=== PATIENT | female | born 1950 | race Two or more races ===

== ENCOUNTER 2016-12-31 14:37 | Emergency (ER) | payer MEDICARE, MEDICAID ==
[~2016-12-31] VITALS: Ht 154.9 cm; Wt 49.9 kg
[2016-12-31 14:46] VITALS: BP 132/73
[2016-12-31] MEDS ORDERED: LIDOCAINE 1% HCL (LOCAL ANESTH.) INJ 20ML MDV IN ONE (17:15)
[2016-12-31] MEDS ORDERED: cefTRIAXone SOD 1,000 MG VL IM ONE (17:45)
== END 2016-12-31 18:14 | disposition home or self-care (01) ==
LOC: ER 14:37
DX: L02.415 Cutaneous abscess of right lower limb (principal); J44.9 Chronic obstructive pulmonary disease, unspecified; M06.9 Rheumatoid arthritis, unspecified; M32.9 Systemic lupus erythematosus, unspecified; M79.7 Fibromyalgia
CPT/HCPCS: 10060; 96372; 99283; J0696; J2001

== ENCOUNTER 2019-03-14 03:48 | Inpatient (IN) | payer MEDICAID, MEDICARE, OTHER ==
[~2019-03-14] VITALS: Ht 154.9 cm; Wt 55.0 kg
[2019-03-14 04:18] LABS: Basophils # (auto) 0 uL; Basophils % (auto) 0.2 % (0.0-2.0); Eosinophils # (auto) 0 uL; Eosinophils % (auto) 0.1 % (0.0-7.0); Hematocrit 42.5 % (36.0-46.0); Hemoglobin 13.9 g/dL (12.2-16.2); Lymphocytes # (auto) 1.9 uL; Lymphocytes % (auto) 9.7 % (10.0-50.0); Mean Corpuscular Hemoglobin 27.1 pg (28.0-32.0); Mean Corpuscular Hgb Conc. 32.8 g/dL (32.0-36.0); Mean Corpuscular Volume 82.7 fL (80.0-100.0); Monocytes # (auto) 1.5 uL; Monocytes % (auto) 7.5 % (0.0-12.0); Neutrophils # (auto) 16.2 uL; Neutrophils % (auto) 82.5 % (37.0-80.0); Platelet Count (auto) 369 10^3/uL (140-450); Red Blood Cells 5.14 10^6/uL (4.0-5.20); Red Cell Distribution Width 14.5 % (11.8-14.3); White Blood Cell 19.6 10^3/uL (4.4-10.8)
[2019-03-14 04:34] LABS: INR 1.01 (0.9-1.15); Partial Thromboplastin Time 23.1 sec (23.64-32.05)
[2019-03-14 04:36] LABS: Albumin 2.7 g/dL (3.4-5.0); Anion Gap 9 (5-15); BUN/Creatinine Ratio 22.8; Blood Urea Nitrogen 18 mg/dL (7-18); Calcium 8.6 mg/dL (8.5-10.1); Carbon Dioxide 25 mmol/L (21-32); Chloride 99 mmol/L (98-107); GFR African American 93 mL/min; GFR Non-African American 77 mL/min; Glucose 124 mg/dL (74-106); Potassium 4.4 mmol/L (3.5-5.1); Sodium 133 mmol/L (136-145)
[2019-03-14 04:39] LABS: Alanine Aminotransferase 33 U/L (13-56); Alkaline Phosphatase 130 U/L (45-117); Aspartate Aminotransferase 16 U/L (15-37); Bilirubin, Total 0.4 mg/dL (0.2-1.0); Total Protein 8.4 g/dL (6.4-8.2)
[2019-03-14] MEDS ORDERED: KETOROLAC TROMETH 30 MG/ML 1ML VIAL IV ONE (04:45)
[2019-03-14] MEDS ORDERED: IOHEXOL 350 MG/ML 100ML IJ ONE (04:51)
[2019-03-14] MEDS ORDERED: MORPHINE SULF INJ 2 MG/ML SYRINGE 1ML IV ONE (05:15)
[2019-03-14] MEDS ORDERED: PIPERACILLIN-TAZOB 3.375GM 100 ML IV ONE (06:00)
[2019-03-14] MEDS ORDERED: VANCOMYCIN 1GM/250ML 250 ML IV ONE ×2 (06:00→23:30)
[2019-03-14] MEDS ORDERED: ONDANSETRON HCL 4 MG/2 ML VIAL IV PRN (06:45)
[2019-03-14] MEDS ORDERED: ACETAMINOPHEN 500 MG TAB PO PRN (06:45)
[2019-03-14 07:19] VITALS: BP 128/68
[2019-03-14] MEDS ORDERED: SODIUM CHLORIDE 0.9% 1,000 ML IV ONE (07:45)
[2019-03-14] MEDS: DOXYCYCLINE 100MG/250ML 250 ML IV SCH ×2 (08:49→20:59)
--- NOTE | 2019-03-14 08:53 | NUR ---
RECEIVED REPORT FROM KADY PINEDA
--- NOTE | 2019-03-14 09:05 | NUR ---
Telemetry admit from [facility] admitted to Telemetry unit after SBAR received. Patient oriented to Christina Dillard, primary RN, unit, room, bed, and unit policies regarding patient care and visiting hours. Patient now on continuous telemetry monitoring, tele box # 20 and telemetry reading on arrival to unit is SINUS THYTHM AT 85BPM. Patient placed on bedside oxygen, weighed by bedscale and encouraged to call if they need something. All questions and concerns addressed, patient verbalized understanding. Note: PT IS AWAKE AND ALERT, NO SIGNS OF DISTRESS AT THIS TIME WILL CONTINUE TO MONITOR.
[2019-03-14 09:15] VITALS: BP 122/63
[2019-03-14] MEDS: ALBUTEROL SULF 2.5 MG/0.5ML(0.5%) NEB SOLN NEB SCH ×4 (09:41→22:20)
[2019-03-14] MEDS: IPRATROPIUM BROM 0.5 MG/2.5ML INH SOL NEB SCH ×4 (09:41→22:20)
[2019-03-14] MEDS: PANTOPRAZOLE 40 MG TAB PO SCH (10:04)
[2019-03-14 11:09] LABS: Urine Bacteria NONE SEEN /hpf (None Seen); Urine Blood Negative /uL (Negative); Urine Mucus FEW (None Seen); Urine WBC 3 /hpf (0 - 5)
[2019-03-14 11:10] LABS: Urine Specific Gravity > 1.050 (1.001-1.035)
[2019-03-14 12:31] VITALS: BP 124/63
[2019-03-14] MEDS: SODIUM CHLORIDE 0.9% 1,000 ML IV SCH ×2 (12:57→23:22)
--- NOTE | 2019-03-14 13:10 | NUR ---
pt asleep on bed resting comfortably, no signs of SOB at this time will continue to monitor.
[2019-03-14 14:02] VITALS: BP 160/93
[2019-03-14] MEDS ORDERED: LEVO750T64 PO (14:47)
[2019-03-14] MEDS ORDERED: PRE5T PO (14:47)
[2019-03-14 16:33] VITALS: BP 127/66
--- NOTE | 2019-03-14 19:15 | NUR ---
Opening Shift Note Assumed care of patient, awake and alert. No S/S of distress/SOB or pain. Instructed on POC and to call for assist PRN, will continue to monitor for changes Q1hr and PRN. Side rails up x2. Bed locked in lowest position. Call light within reach.
[2019-03-14 22:00] VITALS: BP 136/60
[2019-03-14] MEDS ORDERED: VANCOMYCIN PER PHARMACY 0 MG IV SCH (23:15)
[2019-03-15] MEDS ORDERED: ERTAPENEM SOD INJ 0.5 GM in SODIUM CHL 0.9% 50 ML IV ONE ×2
--- NOTE | 2019-03-15 01:30 | NUR ---
Invanz Medication not available. Notified charge nurse. Will call pharmacy in the morning for this one time dose.
[2019-03-15] MEDS: IPRATROPIUM BROM 0.5 MG/2.5ML INH SOL NEB SCH ×6 (02:08→22:00)
[2019-03-15] MEDS: ALBUTEROL SULF 2.5 MG/0.5ML(0.5%) NEB SOLN NEB SCH ×6 (02:08→22:00)
--- NOTE | 2019-03-15 02:50 | NUR ---
Rounds Patient in bed awake with no signs of distress/sob/pain. Will continue to monitor.
[2019-03-15] MEDS: HYDROcodone-ACET 5/325MG TAB PO PRN ×3 (04:17→23:38)
[2019-03-15 05:00] VITALS: BP 141/63
--- NOTE | 2019-03-15 05:00 | NUR ---
Shortness of breath Patient verbalized pain on right side of chest upon inhalation. Patient verbalized "I am having a hard time breathing because it is painful when i breath" O2 saturation at 86% on 4L nasal cannula. Will administer PRN pain medication. Elevated head of the bed and placed patient on 6L oxymyzer. Patient states "I feel better" O2 saturation is now at 92% on 6L oxymyzer. Will continue to monitor.
[2019-03-15 06:24] LABS: Basophils # (auto) 0 uL; Basophils % (auto) 0.2 % (0.0-2.0); Eosinophils # (auto) 0.1 uL; Eosinophils % (auto) 0.7 % (0.0-7.0); Hematocrit 40.3 % (36.0-46.0); Hemoglobin 13.5 g/dL (12.2-16.2); Lymphocytes # (auto) 1.5 uL; Mean Corpuscular Hemoglobin 27.3 pg (28.0-32.0); Mean Corpuscular Hgb Conc. 33.5 g/dL (32.0-36.0); Mean Corpuscular Volume 81.4 fL (80.0-100.0); Monocytes # (auto) 1.1 uL; Monocytes % (auto) 8.3 % (0.0-12.0); Neutrophils % (auto) 78.8 % (37.0-80.0); Nucleated Red Blood Cells % 0.1 %; Platelet Count (auto) 425 10^3/uL (140-450); Red Blood Cells 4.95 10^6/uL (4.0-5.20); Red Cell Distribution Width 14.4 % (11.8-14.3); White Blood Cell 12.7 10^3/uL (4.4-10.8)
[2019-03-15 06:37] LABS: Calcium 8.2 mg/dL (8.5-10.1); Potassium 3.6 mmol/L (3.5-5.1)
[2019-03-15 06:41] LABS: BUN/Creatinine Ratio 12.5
--- NOTE | 2019-03-15 07:34 | NUR ---
Endorsed care to day shift RN.
[2019-03-15 08:00] VITALS: BP 120/57
[2019-03-15] MEDS: PANTOPRAZOLE 40 MG TAB PO SCH (09:42)
[2019-03-15] MEDS: VANCOMYCIN 500 MG in D5W 5% 100 ML IV SCH ×2 (10:59→23:37)
--- NOTE | 2019-03-15 11:07 | NUR ---
OXYGEN SATURATION ROOM AIR 95%, WILL CONTINUE TO MONITOR.
[2019-03-15] MEDS: SODIUM CHLORIDE 0.9% 1,000 ML IV SCH (11:25)
--- NOTE | 2019-03-15 11:30 | NUR ---
SPOKE WITH DR. Hazel TODD MADE AWARE PT'S O2 SATURATION WAS 95% ROOM AIR, HE SAID PT NEEDS MIDLINE FOR HOME ANTIBIOTIC FOR 2 WEEKS, AND PT CAN GO HOME IF CLEARED BY PULMONARY.
--- NOTE | 2019-03-15 11:35 | NUR ---
PICC LINE NURSE MADE AWARE PT HAS ORDER FOR MIDLINE FOR HOME ANTIBIOTIC FOR 2 WEEKS.
[2019-03-15] MEDS ORDERED: INVANZ IM (11:42)
[2019-03-15] MEDS ORDERED: VAN1PBAE IV (11:42)
[2019-03-15 12:00] VITALS: BP 116/51
--- NOTE | 2019-03-15 12:15 | NUR ---
PT SEEN BY DR. FLORES PER DR. FLORES PT IS CLEARED FOR DISCHARGE WITH HOME IV ANTIBIOTIC.
[2019-03-15 12:31] VITALS: BP 116/51
--- NOTE | 2019-03-15 13:41 | NUR ---
Midline Placement Patient educated on need for midline placement. All risks and benefits explained and all questions and concerns addresses prior to procedure. 18g/10cm midline inserted via right brachial vein using Ultrasound. Sterile technique utilized. Blood return obtained from single lumen and flushed easily with NS using proper technique. Midline secured with saline lock; biodisc and occlusive dressing applied. Primary RN notified. Midline lot #[id number].
[2019-03-15] MEDS: ERTAPENEM SOD INJ 1 GM in SODIUM CHL 0.9% 50 ML IV SCH (14:16)
--- NOTE | 2019-03-15 14:26 | NUR ---
SPOKE WITH AKANKSHA FLOWER MAKER REGARDING UPDATE FOR HOME IV ANTIBIOTIC, PER AKANKSHA SHE IS WORKING ON IT.
--- NOTE | 2019-03-15 14:44 | NUR ---
faxed order for abx to [facility]. Awaiting call back
--- NOTE | 2019-03-15 15:36 | NUR ---
assessment Patient is a 69 year old female who is alert and oriented. Prior to admission patient lived home with her daughter and functioned independently. Per patient she will return home with her daughter on discharge. Patient informed me she has a cane for home use. Patients PCP is Dr Nixon. Patient has no advanced directive or POA. Patient does not want one at this time. Patient has been notified of her consult for IV ABX for home. Patient informed me she and her daughter are teachable. Graciela renal case manager is working on IV infusion and home health. Addendum: 03/15/19 at 1544 by Francoise BATISTA Amended: Links added.
--- NOTE | 2019-03-15 15:42 | NUR ---
re-assessment Per consult please arrange for home 02 if patient qualifies. Patient has 02 sats of 95% on room air. Patient does not qualify for home 02. Addendum: 03/15/19 at 1544 by Francoise Alaniz Amended: Links added.
--- NOTE | 2019-03-15 16:24 | NUR ---
HOME ABX; [facility] has accepted pt but cannot go out to pt until tomorrow evening. Pt will have to stay tonoc and get am dose of vanco before leaving tomorrow. Contracted [facility] agencies are down RNs and are either not accepting pts or unable to start any sooner
--- NOTE | 2019-03-15 16:34 | NUR ---
[facility] Mary[facility] is working on order and knows pt is not discharged until tomorrow after dose of vanco
--- NOTE | 2019-03-15 16:38 | NUR ---
LEFT A MESSAGE TO DR. TODD THAT PT WILL STAY TONIGHT SINCE HOME HEALTH NURSE WILL NOT BE AVAILABLE UNTIL TOMORROW EVENING.
[2019-03-15 16:40] VITALS: BP 146/67
--- NOTE | 2019-03-15 18:25 | NUR ---
SPOKE TO RODNEY, MADE AWARE PT CANNOT GO HOME TONIGHT, HOME HEALTH NURSE WILL BE AVAILABLE TOMORROW EVENING.
[2019-03-15 22:06] VITALS: BP 135/61
[2019-03-16] MEDS: ALBUTEROL SULF 2.5 MG/0.5ML(0.5%) NEB SOLN NEB SCH ×4 (02:08→14:15)
[2019-03-16] MEDS: IPRATROPIUM BROM 0.5 MG/2.5ML INH SOL NEB SCH ×4 (02:08→14:15)
[2019-03-16] MEDS: SODIUM CHLORIDE 0.9% 1,000 ML IV SCH ×2 (02:22→13:38)
[2019-03-16 04:58] VITALS: BP 154/71
--- NOTE | 2019-03-16 08:10 | NUR ---
Patient awake, on breathing treatment.
--- NOTE | 2019-03-16 08:38 | NUR ---
Hazel Brooks came over. ordered to discharge the patient when the home IV antibiotics is set up, with home health.
[2019-03-16 09:40] VITALS: BP 128/69
[2019-03-16] MEDS: VANCOMYCIN 500 MG in D5W 5% 100 ML IV SCH (11:25)
[2019-03-16] MEDS: PANTOPRAZOLE 40 MG TAB PO SCH (11:25)
--- NOTE | 2019-03-16 12:12 | NUR ---
Paged Quality Control Specialist Graciela.
--- NOTE | 2019-03-16 12:27 | NUR ---
Called the office of Hazel Brooks Left a message if patient can get the second dose of Vanco around 8:00 pm or earlier because home health Nurse will be available to bring the home IV antibiotics at 11:00 pm yordan.
--- NOTE | 2019-03-16 12:41 | NUR ---
Granite Polisher Machine Graciela called back. Graciela said patient is assigned to Granite Polisher Machine Raina. Paged Raina.
--- NOTE | 2019-03-16 12:50 | NUR ---
Worship Director Raina called back if it's okay with Arya Brooks. if patient can get the second dose of Vancomycin at 9:00 pm at home yordan, home health nurse to come over to patient's home at 9:00 pm for IV antibiotics.
--- NOTE | 2019-03-16 12:55 | NUR ---
Called the office of Hazel Brooks Left a message if okay with him to let the patient get the second dose of Vancomycin as early as 9:00 pm at home tonight. Home health nurse to come over at patient's house at 9:00 pm tonight as per Director Custom Raina Lockett. Waiting for MD to call back.
[2019-03-16 13:06] VITALS: BP 142/72
--- NOTE | 2019-03-16 13:29 | NUR ---
Hazel Brooks called back. said it's okay that patient get's the second dose of Vancomycin drip at home as early as 9:00 pm yordan. Paged Chief Supply Chain Officer Raina.
[2019-03-16] MEDS: ERTAPENEM SOD INJ 1 GM in SODIUM CHL 0.9% 50 ML IV SCH (13:31)
[2019-03-16] MEDS: HYDROcodone-ACET 5/325MG TAB PO PRN (13:38)
--- NOTE | 2019-03-16 13:39 | NUR ---
Manager Field Investigations Raina called back, made aware Dr. Becker said it's okay if patient gets the second dose of Vancomycin as early as 9:00 pm at home tonight as per home health nurse. Will give the informations to patient: [facility] ([phone]) and [facility] ([phone]). Addendum: 03/16/19 at 1342 by Mary Anne Werner RN information
--- NOTE | 2019-03-16 14:02 | NUR ---
I called [facility] and left message for Christine letting her know that it is okay with to give carllilia's Vancomycin dose at 2100 instead of 2300-also faxed her message as well-awaiting return call. I provided nurse Mary Anne with contact information for both [facility] as well as [facility].
--- NOTE | 2019-03-16 14:17 | NUR ---
Called patient's daughter Vannesa that patient is going home today. Vannesa said she lives in [place] so she will call her sister who lives at [facility] to pickler helper the patient.
--- NOTE | 2019-03-16 14:33 | NUR ---
I called [facility] [phone] and spoke with Madeleine, she said the IV ATB will be delivered by 2100 to patient's home-I relayed this information to Christine at [facility].
--- NOTE | 2019-03-16 14:50 | NUR ---
Jonathan Fraser at bedside.
--- NOTE | 2019-03-16 14:54 | NUR ---
Discharge instructions given as ordered. Encourage to follow up with PMD as instructed. All questions and concerns addressed. Patient verbalized understanding. Medication reconciliation form completed and copy given to patient. Discharged with midline on the right upper arm for home IV antibiotics. Telemetry unit returned to [facility]. Patient taken to vehicle via wheelchair with all personal belongings, accompanied by staff and family member. No distress noted at time of departure.
== END 2019-03-16 15:06 | disposition home health service (06) | DRG 178 ==
LOC: EDBD 03:48 → ER 03:55 → TELE 06:47 → TELE-WESTW 09:20
PROVIDERS: ADMIT Nurse Practitioner Family; ATTEND Internal Medicine
DX: J85.0 Gangrene and necrosis of lung (principal); E87.1 Hypo-osmolality and hyponatremia; J84.9 Interstitial pulmonary disease, unspecified; I70.0 Atherosclerosis of aorta; E04.1 Nontoxic single thyroid nodule; I10 Essential (primary) hypertension; J43.9 Emphysema, unspecified; J98.4 Other disorders of lung; M32.9 Systemic lupus erythematosus, unspecified; M79.7 Fibromyalgia; M19.90 Unspecified osteoarthritis, unspecified site; Z87.891 Personal history of nicotine dependence
CPT/HCPCS: 36415; 71045; 71275; 76536; 80048; 80053; 81001; 83605; 83880; 84443; 84484; 85025; 85610; 85730; 87040; 87081; 93005; 94640; 94761; 96374; G0378; J1335; J3490; J7060

== ENCOUNTER 2024-10-12 13:11 | Emergency (ER) | payer MEDICARE, OTHER ==
[~2024-10-12] VITALS: Ht 154.9 cm; Wt 55.8 kg
[~2024-10-12 13:11] MED LIST: INVANZ IM; VAN1PBAE IV
--- NOTE | 2024-10-12 13:50 | DVH ---
EXAM: XY CHEST TWO VIEWS ROUTINE CLINICAL HISTORY: COUGH HX COPD COMPARISON: None TECHNIQUE: Frontal and lateral view of the chest was obtained FINDINGS: Lines and Tubes: None Lungs: No focal consolidation. Pleura: No effusion. No pneumothorax. Cardiomediastinal contours: Unremarkable Pulmonary vasculature: Within normal limits. Bones: No acute osseous abnormality. IMPRESSION: 1. No acute cardiopulmonary disease. HS:Y
[2024-10-12 14:05] VITALS: BP 151/75; PULSE 102; RESP 18; TEMP 98; O2SAT 97
--- NOTE | 2024-10-12 14:16 | ED.PDOC ---
SOB-HPI HPI Comments A 74 YEAR OLD FEMALE PRESENTS TO THE ED WITH COMPLAINT OF COUGH. PATIENT STATES SHE HAS BEEN EXPERIENCING A COUGH AND CONGESTION FOR THE PAST 3 WEEKS, BUT NOTES SHE HAS A HISTORY OF COPD SO SHE USUALLY COUGHS ON A DAILY BASIS. PATIENT DENIES FEVER, CHILLS, SHORTNESS OF BREATH, CHEST PAIN, ABDOMINAL PAIN, NAUSEA, VOMITING, HEADACHE, OR OTHER COMPLAINTS. NO OTHER SYMPTOMS OR MODIFYING FACTORS AT THIS TIME. PATIENT IS ALERT, ORIENTED X 4, AND HAS STEADY GAIT. Chief Complaint: Cough Time Seen by MD: 13:30 Primary Care Provider: SHMUEL Reviewed notes: Nurses Notes, Medications, Allergies Information Source: Patient Mode of Arrival: Ambulatory Severity: Moderate Timing: Weeks Duration: Intermittent Context: Spontaneous Onset PE Risk Factors: None History of: COPD Prehospital treatment: None Modifying Factors: Nothing Associated Signs and Symptoms: Cough, Nasal Congestion If cough with SOB: Non-Productive Past Medical History PAST MEDICAL HISTORY: Arthritis, Asthma, COPD Past Medical History (Other): LUPUS, FIBROMYALGIA Surgical History: Denies all surgeries RADIOLOGICAL TECHNOLOGIST History: No Pertinent RADIOLOGICAL TECHNOLOGIST History Family History Family History: Reviewed,noncontributory to illness Social History Smoker: Non-Smoker Alcohol: Denies ETOH Use Drugs: Denies Drug Use Lives In: Home Constitutional: denies: chills, diaphoresis, fatigue, fever, malaise, sweats, weakness, others EENTM: reports: nose congestion; denies: blurred vision, double vision, ear bleeding, ear discharge, ear drainage, ear pain, ear ringing, eye pain, eye redness, hearing loss, mouth pain, mouth swelling, nasal discharge, nose bleeding, nose pain, photophobia, tearing, throat pain, throat swelling, voice changes, others Respiratory: reports: cough; denies: hemoptysis, orthopnea, SOB at rest, shortness of breath, SOB with excertion, stridor, wheezing, others Cardiovascular: denies: chest pain, dizzy spells, diaphoresis, Dyspnea on exertion, edema, irregular heart beat, left arm pain, lightheadedness, palpitations, PND, syncope, others Gastrointestinal: denies: abdomen distended, abdominal pain, blood streaked bowels, constipated, diarrhea, dysphagia, difficulty swallowing, hematemesis, melena, nausea, poor appetite, poor fluid intake, rectal bleeding, rectal pain, vomiting, others Genitourinary: denies: abnormal vagina bleeding, burning, dyspareunia, dysuria, flank pain, frequency, hematuria, incontinence, pain, , vagina discharge, urgency, others Neurological: denies: dizziness, fainting, headache, left sided numbness, left sided weakness, numbness, paresthesia, pre-existing deficit, right sided numbness, right sided weakness, seizure, speech problems, tingling, tremors, weakness, others Musculoskeletal: denies: back pain, gout, joint pain, joint swelling, muscle pain, muscle stiffness, neck pain, others Integumetry: denies: bruises, change in color, change in hair/nails, dryness, laceration, lesions, lumps, rash, wounds, others Allergic/Immunocompromised: denies: Difficulty Healing, Frequent Infections, Hives, Itching, others Hematologic/Lymphatic: denies: anemia, blood clots, easy bleeding, easy bruising, swollen glands, others Endocrine: denies: excessive hunger, excessive sweating, excessive thirst, excessive urination, flushing, intolerance to cold, intolerance to heat, unexplained weight gain, unexplained weight loss, others Psychiatric: denies: anxiety, bipolar disorder, depression, hopeless, panic disorder, schizophrenia, sleepless, suicidal, others All Other Systems: Reviewed and Negative Physical Exam General Appearance: No Apparent Distress, Normal HEENT: Normal ENT Inspection, PERRL/EOMI, Pharynx Normal, TMs Normal Neck: Full Range of Motion, Non-Tender, Normal, Normal Inspection Respiratory: Chest Non-Tender, Expiration, No Accessory Muscle Use, No Respiratory Distress, Rhonchi Cardiovascular: No Edema, No JVD, No Murmur, No Gallop, Normal Peripheral Pulses, Regular Rate/Rhythm Breast Exam: Deferred Gastrointestinal: No Organomegaly, Non Tender, No Pulsatile Mass, Normal Bowel Sounds, Soft Genitalia: Deferred Pelvic: Deferred Rectal: Deferred Extremities: No calf tenderness, Normal capillary refill, Normal inspection, Normal range of motion, Non-tender, No pedal edema Musculoskeletal : Apperance: Normal Neurologic: Alert, electric arc furnace operator II-XII nml as Tested, No Motor Deficits, Normal Affect, Normal Mood, No Sensory Deficits Cerebellar Function: Normal Reflexes: Normal Skin: Dry, Normal Color, Warm Peripheral Pulses: 2+ carotid (R), 2+ carotid (L) Lymphatic: No Adenopathy Was a procedure done? Was a procedure done?: No Differential Dx Differential Diagnosis: Bronchitis, COPD, Pneumonia, Sinusitis, Allergic Rhinitis, Otitis Media, Pharyngitis, URI X-Ray, Labs, Meds, VS Vital Signs Date Time Temp Pulse Resp B/P (MAP) Pulse Ox O2 Delivery O2 Flow Rate FiO2 10/12/24 14:05 102 18 97 Room Air 10/12/24 14:05 98.0 102 18 151/75 (100) 97 98.0 10/12/24 13:22 98.0 102 18 151/75 (100) 97 EXAM: XY CHEST TWO VIEWS ROUTINE CLINICAL HISTORY: COUGH HX COPD COMPARISON: None TECHNIQUE: Frontal and lateral view of the chest was obtained FINDINGS: Lines and Tubes: None Lungs: No focal consolidation. Pleura: No effusion. No pneumothorax. Cardiomediastinal contours: Unremarkable Pulmonary vasculature: Within normal limits. Bones: No acute osseous abnormality. IMPRESSION: 1. No acute cardiopulmonary disease. HS:Y ATED BY: HUNTER HERNANDEZ MD DICTATED DATE/TIME: 10/12/24 1350 SIGNED BY: HUNTER HERNANDEZ MD SIGNED DATE/TIME: 10/12/24 1350 CC: X-Ray, Labs, Meds, VS Comment EXTERNAL MEDICAL RECORDS REVIEWED: [NONE] INDEPENDENT HISTORIANS: [NONE] SOCIAL DETERMINANTS OF HEALTH: [NONE] LABS ORDERED: NONE REVIEWED AND INTERPRETED RESULTS: NONE IMAGING ORDERED: XR CHEST TREATMENTS ORDERED: NONE PROCEDURES PERFORMED: NONE CRITICAL CARE TIME: NONE I HAVE DISCUSSED THE PATIENT WITH THE ATTENDING PHYSICIAN DR. VAZQUEZ AND HE AGREES WITH THE PATIENT'S PLAN OF CARE AND DISPOSITION. BASED ON HISTORY OF PRESENT ILLNESS, AND PHYSICAL EXAM, PATIENT WILL BE DISCHARGED HOME. SHARED DECISION MAKING: DISCUSSED WITH PATIENT THAT THEIR WORKUP WAS NORMAL. PATIENT INSTRUCTED TO FOLLOW UP WITH PRIMARY CARE PROVIDER IN 1-2 DAYS FOR RE- EVALUATION OF SYMPTOMS. PATIENT VERBALIZES UNDERSTANDING TO RETURN TO ED FOR NEW OR WORSENING SYMPTOMS OR IF FOLLOW UP WITH PCP CANNOT BE OBTAINED. PATIENT FEELS COMFORTABLE GOING HOME AT THIS TIME. ALL QUESTIONS ADDRESSED AT TIME OF DISCHARGE. Images Reviewed?: Images reviewed and evaluated by me Time of 1ST Reevaluation: 14:21 Reevaluation 1ST: Improved Patient Education/Counseling: Diagnosis, Treatment, Need For Follow Up Family Education/Counseling: Diagnosis, Treatment, Need For Follow Up Medical Screening: No EMC Exist At This Time Departure 1 Departure Time of Disposition: 14:30 Impression: Primary Impression: COPD with chronic bronchitis Disposition: HOME / SELF CARE / HOMELESS Condition: Stable Additional Instructions: FOLLOW-UP WITH PCP IN 1 TO 2 DAYS. TAKE MEDICATIONS PRESCRIBED. RETURN TO ED FOR ANY NEW OR WORSENING SYMPTOMS. e-Prescriptions Albuterol Sulfate (Albuterol Sulfate Hfa) 108 Mcg/Act Aer 108 MCG IN TID, #120 AER Prov: RAVEN SMITH 10/12/24 Promethazine-Dm (Promethazine Dm 6.25-15 mg/5Ml) 1 Deya Deya 5 ML PO TID, #160 ML Prov: RAVEN SMITH 10/12/24 Methylprednisolone (Medrol Dosepak) 4 Mg Yonis 4 MG PO UD, #21 TAB UAD Prov: RAVEN SMITH 10/12/24 Levofloxacin Hemihydrate (LEVAQUIN 500 MG) 500 Mg Tab 1 TAB PO DAILY, #10 TAB Prov: RAVEN SMITH 10/12/24 Discharged With: Self, Relative Critical Care Note Critical Care Time?: No Stability Stability form required: No Heart Score Heart Score: Heart Score Response (Comments) Value History N/A 0 EKG N/A 0 Age N/A 0 Risk Factors N/A 0 Troponin N/A 0 Total 0 I personally scribed for RAVEN SMITH ([email or web address]) on 10/12/24 at 14:16. Electronically submitted by Trevon Benites ([email or web address]). RAVEN SMITH Oct 12, 2024 14:16
[2024-10-12] MEDS ORDERED: ALBU108A5 IN (14:17)
[2024-10-12] MEDS ORDERED: LEVO500T91 PO (14:17)
[2024-10-12] MEDS ORDERED: METH4PAK PO (14:17)
[2024-10-12] MEDS ORDERED: PROM1SOL4 PO (14:17)
== END 2024-10-12 14:20 | disposition home or self-care (01) ==
LOC: ER 13:11
DX: J44.89 Other specified chronic obstructive pulmonary disease (principal); M19.90 Unspecified osteoarthritis, unspecified site; M79.7 Fibromyalgia
CPT/HCPCS: 71046